=== PATIENT | male | born 1960 | race Caucasian/White ===

== ENCOUNTER 2016-07-13 10:53 | Emergency (ER) | payer MEDICARE, MEDICAID ==
[2016-07-13] MEDS ORDERED: IBUPROFEN 800 MG TABLET ONE (11:58)
[2016-07-13] MEDS ORDERED: PREDNISONE 20 MG TABLET ONE (11:59)
== END 2016-07-13 12:14 | disposition home or self-care (01) ==
LOC: ED 10:53
DX: G56.22 Lesion of ulnar nerve, left upper limb (principal); I10 Essential (primary) hypertension; R73.03 Prediabetes; F17.210 Nicotine dependence, cigarettes, uncomplicated
CPT/HCPCS: 99283 ×2; A9270; J7512